=== PATIENT | male | born 1975 | race Caucasian/White ===

== ENCOUNTER 2017-08-22 15:08 | Emergency (ER) | payer OTHER ==
[~2017-08-22] VITALS: Ht 162.6 cm; Wt 95.9 kg
[2017-08-22 15:20] VITALS: Ht 162.6 cm; Wt 95.9 kg
[2017-08-22 16:14] VITALS: BP 145/80
== END 2017-08-22 16:14 | disposition home or self-care (01) ==
LOC: ED 15:08
DX: H53.8 Other visual disturbances (principal); E11.9 Type 2 diabetes mellitus without complications